=== PATIENT | female | born 1990 | race Two or more races ===

== ENCOUNTER 2024-08-22 19:06 | Emergency (ER) | payer OTHER ==
[~2024-08-22] VITALS: Ht 162.6 cm; Wt 59.1 kg
[2024-08-22 19:15] VITALS: TEMP 98
[2024-08-22] MEDS: ACETAMINOPHEN 500 MG TABLET PO ONE (22:36)
[2024-08-22] MEDS: IBUPROFEN 400 MG TABLET PO ONE (22:37)
[2024-08-22 23:28] VITALS: BP 114/68; PULSE 78; RESP 18; O2SAT 99
== END 2024-08-22 23:30 | disposition home or self-care (01) ==
LOC: EMS 19:06
DX: S93.402A Sprain of unspecified ligament of left ankle, initial encounter (principal); Z98.890 Other specified postprocedural states; X50.1XXA Overexertion from prolonged static or awkward postures, initial encounter; Y93.01 Activity, walking, marching and hiking; Y92.89 Other specified places as the place of occurrence of the external cause; Y99.8 Other external cause status
CPT/HCPCS: 99283